=== PATIENT | female | born 1985 | race Caucasian/White ===

== ENCOUNTER 2019-12-03 07:51 | Inpatient (IN) | payer OTHER ==
[2019-12-03] MEDS ORDERED: Methylergonovine 0.2 MG/1 ML Amp IM PRN (08:10)
[2019-12-03] MEDS ORDERED: Sodium Chloride 0.9% 10 ML Syringe FLUSH PRN (08:10)
[2019-12-03] MEDS ORDERED: Tranexamic Acid 1,000 MG in Sodium Chloride 0.9% 100 ML IV PRN (08:10)
[2019-12-03] MEDS ORDERED: Sodium Chloride 0.9% 10 ML SDV IV PRN (08:10)
[2019-12-03] MEDS ORDERED: Water For Irrigation,Sterile 1,000 ML Container IRR PRN (08:10)
[2019-12-03] MEDS ORDERED: Carboprost Tromethamine 250 MCG/1 ML Amp IM PRN (08:10)
[2019-12-03] MEDS ORDERED: Nalbuphine 10 MG/1 ML Vial IVPUSH PRN (08:10)
[2019-12-03] MEDS ORDERED: Misoprostol 200 MCG Tab PO PRN (08:10)
[2019-12-03] MEDS ORDERED: Lidocaine 1% 50 ML MDV INJECT PRN (08:10)
[2019-12-03] MEDS ORDERED: Sodium Chloride 0.9% 2.5 ML Syringe FLUSH PRN (08:10)
[2019-12-03] MEDS ORDERED: Terbutaline 1 MG/ML SDV SUBCUT PRN (08:10)
[2019-12-03] MEDS ORDERED: Oxytocin/0.9 % Sodium Chloride 30 UNIT/500 ML BAG IV SCH ×2 (08:15)
[2019-12-03] MEDS: Lactated Ringers 1,000 ML IV SCH ×3 (08:38→23:17)
[2019-12-03] MEDS: Misoprostol 25 MCG (1/4 of 100 MCG) Tab VAG PRN ×3 (08:45→17:11)
[2019-12-03] MEDS: Butorphanol 1 MG/ML SDV IVPUSH PRN ×2 (17:36→21:13)
[2019-12-03] MEDS ORDERED: fentaNYL 100 MCG/2 ML SDV ONE (22:59)
[2019-12-03] MEDS ORDERED: Ropivacaine HCl/PF 100 ML ONE (22:59)
--- NOTE | 2019-12-03 23:23 | PCM.PREANE ---
Preanesthetic Assessment - Anesthesia/Transfusion/Family Hx Anesthesia History: Prior Anesthesia Without Reaction Family History of Anesthesia Reaction: No Transfusion History: No Prior Transfusion(s) - Physical Assessment NPO Status Date: 12/03/19 NPO Status Time: 20:00 Height: 1.68 m Weight: 92.533 kg ASA Class: 1 - Lab Values: Laboratory Last Values WBC 10.98 K/uL (4.0-11.0) 12/03/19 08:36 RBC 4.21 M/uL (4.30-5.90) L 12/03/19 08:36 Hgb 12.7 g/dL (12.0-16.0) 12/03/19 08:36 Hct 38.7 % (36.0-46.0) 12/03/19 08:36 MCV 91.9 fL (80.0-98.0) 12/03/19 08:36 MCH 30.2 pg (27.0-32.0) 12/03/19 08:36 MCHC 32.8 g/dL (31.0-37.0) 12/03/19 08:36 RDW Std Deviation 44.3 fl (28.0-62.0) 12/03/19 08:36 RDW Coeff of Joss 13 % (11.0-15.0) 12/03/19 08:36 Plt Count 329 K/uL (150-400) 12/03/19 08:36 MPV 9.60 fL (7.40-12.00) 12/03/19 08:36 Nucleated RBC % 0.0 /100WBC 12/03/19 08:36 Nucleated RBCs # 0 K/uL 12/03/19 08:36 Blood Type O POSITIVE 12/03/19 08:36 Antibody Screen NEGATIVE 12/03/19 08:36 - Allergies Allergies/Adverse Reactions: Allergies Allergy/AdvReac Type Severity Reaction Status Date / Time No Known Allergies Allergy Verified 12/03/19 08:09 - Acknowledgements Anesthesia Type Planned: Epidural Pt an Appropriate Candidate for the Planned Anesthesia: Yes Alternatives and Risks of Anesthesia Discussed w Pt/Guardian: Yes Pt/Guardian Understands and Agrees with Anesthesia Plan: Yes PreAnesthesia Questionnaire HEENT History: Reports: Other (See Below) 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 Breast augmentation. - SUBSTANCE USE Smoking Status *Q: Never Smoker Tobacco Use Within Last Twelve Months: No Second Hand Smoke Exposure: No Recreational Drug Use History: No - HOME MEDS Home Medications: Home Meds Pnv No.95/Ferrous Fum/Folic AC [ Caplet] 1 each PO DAILY 12/03/19 [ History] - CURRENT (IN HOUSE) MEDS Current Meds: Current Medications Butorphanol Tartrate (Stadol) 1 mg IVPUSH Q1H PRN PRN Reason: Pain Last Admin: 12/03/19 21:13 Dose: 1 mg Carboprost Tromethamine (Hemabate Ds) 250 mcg IM ASDIRECTED PRN PRN Reason: Post Hemorrhage Lactated Ringer's (Ringers, Lactated) 1,000 mls @ 150 mls/hr IV ASDIRECTED JUAN Last Admin: 12/03/19 23:17 Dose: 500 mls/hr Oxytocin/Sodium Chloride (Oxytocin 30 Unit/500 Ml-Ns) 30 unit in 500 mls @ 999 mls/hr IV TITRATE JUAN Oxytocin/Sodium Chloride (Oxytocin 30 Unit/500 Ml-Ns) 30 unit in 500 mls @ 2 mls/hr IV TITRATE JUAN; Protocol Tranexamic Acid 1,000 mg/ (Sodium Chloride) 110 mls @ 660 mls/hr IV ONETIME PRN PRN Reason: Bleeding Lidocaine HCl (Xylocaine 1%) 50 ml INJECT ONETIME PRN PRN Reason: Laceration repair Methylergonovine Maleate (Methergine) 0.2 mg IM ASDIRECTED PRN PRN Reason: Post Hemorrhage Misoprostol (Cytotec) 200 mcg PO ONETIME PRN PRN Reason: Post Hemorrhage Misoprostol (Cytotec) 25 mcg VAG Q4H PRN PRN Reason: Cervical Ripening Last Admin: 12/03/19 17:11 Dose: 25 mcg Nalbuphine HCl (Nubain) 10 mg IVPUSH Q1H PRN PRN Reason: Pain (severe 7-10) Sodium Chloride (Saline Flush) 10 ml FLUSH ASDIRECTED PRN PRN Reason: Keep Vein Open Sodium Chloride (Saline Flush) 2.5 ml FLUSH ASDIRECTED PRN PRN Reason: Keep Vein Open Last Admin: 12/03/19 21:19 Dose: 2.5 ml Sodium Chloride (Normal Saline) 10 ml IV ASDIRECTED PRN PRN Reason: IV Use Sterile Water (Sterile Water For Irrigation) 1,000 ml IRR ASDIRECTED PRN PRN Reason: delivery Terbutaline Sulfate (Brethine) 0.25 mg SUBCUT ASDIRECTED PRN PRN Reason: Tacysystole Discontinued Medications Fentanyl (Sublimaze) Confirm Administered Dose 100 mcg .ROUTE .STPatient Conversation Media-MED ONE Stop: 12/03/19 23:00 Ropivacaine (Naropin 0.2%) Confirm Administered Dose 100 mls @ as directed .ROUTE .STPatient Conversation Media-MED ONE Stop: 12/03/19 23:00
--- NOTE | 2019-12-03 23:27 | PCM.PRNOTE ---
- Free Text/Narrative Note: Anes NOte Patietn requests epidural for L&D. Sitting position, level L3-L4 midline appraoch. Sterile technique. Chloraprep scrub to lumbar area. Sterile fenestrated drape applied. Epidural space easily achieved single attempt with ease using KALIE technique. KALIE at 3 cm. Cath threaded 5 cm with ease. Cath secured at 9 cm at skin using sterile clear adhesive dressing. 2310 Test 3 cc 1.5% lido with epi negative. 2312 Load 10 cc 0.2% ropivicaine with 1 mcg cc fentanyl i slow divided doses. 2316 Pump started with 90 cc same solution/ Rate is 8 cc hr with 6 cc q 20 min prn bolus. Ruth well. Time with patient [id number] Ray Danielle CRNA
[2019-12-04] MEDS ORDERED: Acetaminophen 500 MG Tab PO ONE (08:10)
[2019-12-04] MEDS: Lactated Ringers 1,000 ML IV SCH ×2 (08:40→15:12)
[2019-12-04] MEDS ORDERED: Ropivacaine HCl/PF 100 ML ONE (08:51)
--- NOTE | 2019-12-04 08:59 | PCM.SN.2 ---
- Free Text/Narrative Note: Doing well. Epidural bag changed. Settings remain as previous..
[2019-12-04] MEDS ORDERED: Ampicillin 2 GM in Sodium Chloride 0.9% 100 ML IV SCH (15:00)
[2019-12-04] MEDS ORDERED: Citric Acid/Sodium Citrate Solution 30 ML Cup ONE (15:56)
[2019-12-04] MEDS ORDERED: Citric Acid/Sodium Citrate Solution 30 ML Cup PO ONE (16:03)
[2019-12-04] MEDS ORDERED: Clindamycin Phosphate in D5W 900 MG in Premix Bag 1 BAG IV ONE ×2 (16:10)
[2019-12-04] MEDS ORDERED: ePHEDrine 50 MG/ML SDV ONE (16:17)
[2019-12-04] MEDS ORDERED: Ondansetron 4 MG/2 ML SDV ONE (16:17)
[2019-12-04] MEDS ORDERED: Sodium Chloride 0.9% 20 ML ONE (16:19)
[2019-12-04] MEDS ORDERED: fentaNYL 100 MCG/2 ML SDV IVPUSH PRN (16:24)
[2019-12-04] MEDS ORDERED: Nalbuphine 10 MG/1 ML Vial IVPUSH PRN (16:24)
[2019-12-04] MEDS ORDERED: Acetaminophen/oxyCODONE 325-5 MG Tab PO PRN ×3 (16:24→17:59)
[2019-12-04] MEDS ORDERED: Morphine PF 10 MG/10 ML SDV ONE (16:31)
[2019-12-04] MEDS ORDERED: Ibuprofen 800 MG Tab PO PRN (17:59)
[2019-12-04] MEDS ORDERED: Bisacodyl 10 MG Supp RECTAL PRN (17:59)
[2019-12-04] MEDS ORDERED: Methylergonovine 0.2 MG/1 ML Amp IM PRN (17:59)
[2019-12-04] MEDS ORDERED: Oxytocin 10 Units/1 ML SDV IM PRN (17:59)
[2019-12-04] MEDS ORDERED: Tranexamic Acid 1,000 MG in Sodium Chloride 0.9% 100 ML IV PRN (17:59)
[2019-12-04] MEDS ORDERED: Ondansetron 4 MG/2 ML SDV IVPUSH PRN (17:59)
[2019-12-04] MEDS ORDERED: Misoprostol 200 MCG Tab RECTAL PRN (17:59)
[2019-12-04] MEDS ORDERED: diphenhydrAMINE 50 MG/ML SDV IVPUSH PRN (17:59)
[2019-12-04] MEDS ORDERED: Lanolin 100% Cream 7 GM Tube TOP PRN (17:59)
[2019-12-04] MEDS ORDERED: Oxytocin/Lactated Ringers 30 UNIT/500 ML BAG IV SCH (18:00)
[2019-12-04] MEDS ORDERED: Ampicillin/Sulbactam Na 3 GM in Sodium Chloride 0.9% 100 ML IV SCH (18:15)
--- NOTE | 2019-12-04 18:21 | PCM.OPNOTE ---
- General Post-Op/Procedure Note Date of Surgery/Procedure: 12/04/19 Operative Procedure(s): Primary lower segment Findings: Live male delivered in OP position at 1649 , 8/9 , Weight- 3190g Normal tubes and ovaries Fibroid Uterus Pre Op Diagnosis: 34yo @ 40w3d for Arrest of Dilatation. Chorioamnionitis Post-Op Diagnosis: same Anesthesia Technique: Epidural Primary Surgeon: Juve Hu Anesthesia Provider: Kamran Alarcon Event Decorator: Kerry Paniagua Pathology: Placenta Fluid Replacement, Intraop: 1,100 Output, Urine Amount: 250 EBL in mLs: 800 Complications: None Condition: Good
--- NOTE | 2019-12-04 18:30 | PCM.POSTAN ---
POST ANESTHESIA ASSESSMENT - MENTAL STATUS Mental Status: Alert, Oriented - RESPIRATORY Respiratory Status: Respiratory Rate WNL, Airway Patent, O2 Saturation Stable - CARDIOVASCULAR CV Status: Pulse Rate WNL, Blood Pressure Stable - GASTROINTESTINAL GI Status: No Symptoms - POST OP HYDRATION Hydration Status: Adequate & Stable
[2019-12-04] MEDS ORDERED: Ketorolac 30 MG/ML SDV IVPUSH SCH (19:00)
[2019-12-04] MEDS: Ampicillin/Sulbactam Na 3 GM in Sodium Chloride 0.9% 100 ML IV SCH (19:59)
[2019-12-04] MEDS: Docusate Sodium 100 MG Cap PO SCH (20:04)
[2019-12-05] MEDS: Ketorolac 30 MG/ML SDV IVPUSH SCH ×3 (01:07→13:41)
[2019-12-05] MEDS: Ampicillin/Sulbactam Na 3 GM in Sodium Chloride 0.9% 100 ML IV SCH ×4 (02:02→14:55)
[2019-12-05] MEDS: Lactated Ringers 1,000 ML IV SCH (08:23)
--- NOTE | 2019-12-05 09:00 | OR ---
SURGEON: NATALIA RYAN DATE OF PROCEDURE: 12/04/2019 PREOPERATIVE DIAGNOSES: A 34-year-old G1, P0, at 40 weeks 3 days, admitted for induction of labor, had arrest of descent, chorioamnionitis. POSTOPERATIVE DIAGNOSES: 1. Arrest of descent. 2. Chorioamnionitis. PROCEDURE: Primary lower transverse section. Anaesthesia: Epidural ESTIMATED BLOOD LOSS: 800. IV FLUIDS: 1100. URINE OUTPUT: 250. NOTES AND FINDING: Live male delivered at 1649. scores 8 and 9, weight 3190 g. Multiple subserosal fibroid BRIEF HISTORY: The patient is a 34-year-old G1, P0, at 40 weeks 3 days who was admitted for induction of labor. She received Cytotec x3 doses and had a CRB balloon placed. After CRB balloon was placed, she received Pitocin, was titrated up. IUPC was placed. She had occasional variable deceleration that recovered to baseline category 1 tracing. When patient was fully dilated, she was encouraged to push. She tried to push. Then baby was noted to be in OP position, however, attempt was made to rotate the baby which was unsuccessful. With pushing more worsening caput was noted. As a result, the patient was consented for a , which she agreed to. She was explained the risks, benefits, and alternatives and she decided to proceed. DESCRIPTION OF PROCEDURE: The patient was taken to the operating room where epidural anesthesia was topped up. She was prepared and draped in the dorsal supine position with a leftward tilt. The Pfannenstiel skin incision was made on the skin and carried down to the fascia with the Bovie. The fascia was incised and extended laterally. The fascia was in the midline down to the level of the pubic symphysis. Then the rectus muscle was also in the midline and entry was into the peritoneum without any difficulty. Then, an Mata retractor was placed in to expose the lower uterine segment. Bladder flap was created. Lower uterine incision was also made. The head was then elevated up to the level of the incision, with fundal pressure baby was delivered without any difficulty. The cord was clamped and cut. With manual fundal pressure placenta was delivered without any difficulty. The uterine cavity was cleaned and the hysterotomy incision was closed in 2 layers, 1st layer with 0 Vicryl, the 2nd layer with 0 Monocryl. The adnexa were inspected and noted to be normal. The uterus had multiple subserosal fibroids. Incision was inspected, noted to be hemostatic. The Mata retractor was removed. The peritoneum was closed with 2-0 Vicryl. The muscle was apposed in the midline with 2-0 Vicryl, and the fascia was closed with 0 Vicryl without any difficulty. Subcutaneous fat was closed with 3-0 plain gut. The skin was closed with 3-0 Monocryl on a Adrian needle. All instrument and pad counts were correct x2. The patient was taken to the Labor and Delivery room in stable condition. GHASSAN / ANDRE /[id number] MTDD
--- NOTE | 2019-12-05 09:43 | PCM48HPAN ---
Post Anesthesia Note - EVALUATION WITHIN 48HRS OF ANESTHETIC Vital Signs in Normal Range: Yes Patient Participated in Evaluation: Yes Respiratory Function Stable: Yes Airway Patent: Yes Cardiovascular Function Stable: Yes Hydration Status Stable: Yes Pain Control Satisfactory: Yes Nausea and Vomiting Control Satisfactory: Yes Mental Status Recovered: Yes Vital Signs: Last Vital Signs Temp 36.5 C 12/05/19 08:00 Pulse 90 12/05/19 09:00 Resp 16 12/05/19 09:00 BP 103/58 L 12/05/19 08:00 Pulse Ox 98 12/05/19 09:00
[2019-12-05] MEDS: Docusate Sodium 100 MG Cap PO SCH (10:46)
--- NOTE | 2019-12-05 12:37 | PCM.PNPP ---
- General Info Date of Service: 12/05/19 Subjective Update: 34yo P1 s/p primary POD1, ambulating tolerating regular diet Functional Status: Reports: Pain Controlled, Tolerating Diet, Ambulating - Review of Systems General: Reports: No Symptoms HEENT: Reports: No Symptoms Pulmonary: Reports: No Symptoms Cardiovascular: Reports: No Symptoms Gastrointestinal: Reports: No Symptoms Genitourinary: Reports: No Symptoms Musculoskeletal: Reports: No Symptoms Skin: Reports: No Symptoms Neurological: Reports: No Symptoms Psychiatric: Reports: No Symptoms - General Info Date of Service: 12/05/19 - Patient Data Vital Signs - Most Recent: Last Vital Signs Temp 36.5 C 12/05/19 08:00 Pulse 90 12/05/19 10:00 Resp 16 12/05/19 10:00 BP 103/58 L 12/05/19 08:00 Pulse Ox 98 12/05/19 10:00 Weight - Most Recent: 92.533 kg I&O - Last 24 Hours: Intake & Output 12/04/19 12/05/19 12/05/19 22:59 06:59 14:59 Intake Total 1100 Output Total 1050 2350 2100 Balance 50 -2350 -2100 Lab Results - Last 24 Hours: Laboratory Results - last 24 hr 12/04/19 12/05/19 Range/Units 16:49 05:45 WBC 17.04 H (4.0-11.0) K/uL RBC 3.40 L (4.30-5.90) M/uL Hgb 10.3 L (12.0-16.0) g/dL Hct 31.6 L (36.0-46.0) % MCV 92.9 (80.0-98.0) fL MCH 30.3 (27.0-32.0) pg MCHC 32.6 (31.0-37.0) g/dL RDW Std Deviation 45.8 (28.0-62.0) fl RDW Coeff of Joss 14 (11.0-15.0) % Plt Count 277 (150-400) K/uL MPV 9.30 (7.40-12.00) fL Neut % (Auto) 76.8 (48.0-80.0) % Lymph % (Auto) 12.8 L (16.0-40.0) % [place] % (Auto) 9.3 (0.0-15.0) % Eos % (Auto) 1.0 (0.0-7.0) % Baso % (Auto) 0.1 (0.0-1.5) % Neut # (Auto) 13.1 H (1.4-5.7) K/uL Lymph # (Auto) 2.2 (0.6-2.4) K/uL [place] # (Auto) 1.6 H (0.0-0.8) K/uL Eos # (Auto) 0.2 (0.0-0.7) K/uL Baso # (Auto) 0.0 (0.0-0.1) K/uL Nucleated RBC % 0.0 /100WBC Nucleated RBCs # 0 K/uL Cord VBG pH 7.367 (7.25-7.45) Cord VBG Base Excess -5 (-10--2) Med Orders - Current: Current Medications Bisacodyl (Dulcolax) 10 mg RECTAL ONETIME PRN PRN Reason: Constipation Butorphanol Tartrate (Stadol) 1 mg IVPUSH Q1H PRN PRN Reason: Pain Last Admin: 12/03/19 21:13 Dose: 1 mg Carboprost Tromethamine (Hemabate Ds) 250 mcg IM ASDIRECTED PRN PRN Reason: Post Hemorrhage Diphenhydramine HCl (Benadryl) 25 mg IVPUSH Q6H PRN PRN Reason: Itching or Nausea Last Admin: 12/05/19 01:08 Dose: 25 mg Docusate Sodium (Colace) 100 mg PO BID [facility] Last Admin: 12/05/19 10:46 Dose: 100 mg Emollient Ointment (Lansinoh Hpa) 0 gm TOP ASDIRECTED PRN PRN Reason: Sore Nipples Fentanyl (Sublimaze) 50 mcg IVPUSH Q5M PRN PRN Reason: Pain (severe 7-10) Stop: 12/05/19 16:25 Lactated Ringer's (Ringers, Lactated) 1,000 mls @ 150 mls/hr IV ASDIRECTED [facility] Last Admin: 12/04/19 15:12 Dose: 150 mls/hr Oxytocin/Sodium Chloride (Oxytocin 30 Unit/500 Ml-Ns) 30 unit in 500 mls @ 999 mls/hr IV TITRATE JUAN Oxytocin/Sodium Chloride (Oxytocin 30 Unit/500 Ml-Ns) 30 unit in 500 mls @ 2 mls/hr IV TITRATE [facility]; Protocol Last Titration: 12/04/19 15:48 Dose: 0 munits/min, 0 mls/hr Tranexamic Acid 1,000 mg/ (Sodium Chloride) 110 mls @ 660 mls/hr IV ONETIME PRN PRN Reason: Bleeding Tranexamic Acid 1,000 mg/ (Sodium Chloride) 110 mls @ 660 mls/hr IV ONETIME PRN PRN Reason: Bleeding Lactated Ringer's (Ringers, Lactated) 1,000 mls @ 125 mls/hr IV ASDIRECTED [facility] Last Admin: 12/05/19 08:23 Dose: 125 mls/hr Oxytocin/Lactated Ringer's (Pitocin In Lr 30 Units/500 Ml) 30 unit in 500 mls @ 125 mls/hr IV TITRATE [facility]; Protocol Ampicillin Sodium/Sulbactam (Sodium 3 gm/ Sodium Chloride) 100 mls @ 200 mls/ hr IV Q6H [facility] Last Admin: 12/05/19 08:23 Dose: 200 mls/hr Ibuprofen (Motrin) 800 mg PO Q8H PRN PRN Reason: mild pain or fever Ketorolac Tromethamine (Toradol) 30 mg IVPUSH Q6H [facility] Stop: 12/05/19 19:01 Last Admin: 12/05/19 06:35 Dose: 30 mg Lidocaine HCl (Xylocaine 1%) 50 ml INJECT ONETIME PRN PRN Reason: Laceration repair Methylergonovine Maleate (Methergine) 0.2 mg IM ASDIRECTED PRN PRN Reason: Post Hemorrhage Methylergonovine Maleate (Methergine) 0.2 mg IM ONETIME PRN PRN Reason: Excessive Vaginal Bleeding Misoprostol (Cytotec) 200 mcg PO ONETIME PRN PRN Reason: Post Hemorrhage Misoprostol (Cytotec) 25 mcg VAG Q4H PRN PRN Reason: Cervical Ripening Last Admin: 12/03/19 17:11 Dose: 25 mcg Misoprostol (Cytotec) 1,000 mcg RECTAL ONETIME PRN PRN Reason: excessive bleeding Nalbuphine HCl (Nubain) 10 mg IVPUSH Q1H PRN PRN Reason: Pain (severe 7-10) Last Admin: 12/05/19 06:36 Dose: 10 mg Nalbuphine HCl (Nubain) 2.5 mg IVPUSH Q3H PRN PRN Reason: Pruritis Stop: 12/05/19 16:25 Last Admin: 12/05/19 12:19 Dose: 2.5 mg Ondansetron HCl (Zofran) 4 mg IVPUSH Q4H PRN PRN Reason: Nausea/Vomiting Oxycodone/Acetaminophen (Percocet 325-5 Mg) 1 tab PO ONETIME PRN PRN Reason: Pain (moderate 4-6) Oxycodone/Acetaminophen (Percocet 325-5 Mg) 1 tab PO Q4H PRN PRN Reason: Pain (moderate 4-6) Oxycodone/Acetaminophen (Percocet 325-5 Mg) 2 tab PO Q4H PRN PRN Reason: Pain (moderate 4-6) Oxytocin (Pitocin) 10 unit IM ASDIRECTED PRN PRN Reason: Excessive Vaginal Bleeding Sodium Chloride (Saline Flush) 10 ml FLUSH ASDIRECTED PRN PRN Reason: Keep Vein Open Sodium Chloride (Saline Flush) 2.5 ml FLUSH ASDIRECTED PRN PRN Reason: Keep Vein Open Last Admin: 12/03/19 21:19 Dose: 2.5 ml Sodium Chloride (Normal Saline) 10 ml IV ASDIRECTED PRN PRN Reason: IV Use Sterile Water (Sterile Water For Irrigation) 1,000 ml IRR ASDIRECTED PRN PRN Reason: delivery Terbutaline Sulfate (Brethine) 0.25 mg SUBCUT ASDIRECTED PRN PRN Reason: Tacysystole Discontinued Medications Acetaminophen (Tylenol Extra Strength) 1,000 mg PO ONETIME ONE Stop: 12/04/19 08:11 Last Admin: 12/04/19 08:18 Dose: 1,000 mg Citric Acid/Sodium Citrate (Bicitra Solution) Confirm Administered Dose 30 ml .ROUTE .STK-MED ONE Stop: 12/04/19 15:57 Citric Acid/Sodium Citrate (Bicitra Solution) 30 ml PO ONETIME ONE Stop: 12/04/19 16:04 Last Admin: 12/04/19 16:05 Dose: 30 ml Ephedrine Sulfate (Ephedrine Sulfate) Confirm Administered Dose 50 mg .ROUTE .STK-MED ONE Stop: 12/04/19 16:18 Fentanyl (Sublimaze) Confirm Administered Dose 100 mcg .ROUTE .STK-MED ONE Stop: 12/03/19 23:00 Ropivacaine (Naropin 0.2%) Confirm Administered Dose 100 mls @ as directed .ROUTE .STK-MED ONE Stop: 12/03/19 23:00 Ropivacaine (Naropin 0.2%) Confirm Administered Dose 100 mls @ as directed .ROUTE .STK-MED ONE Stop: 12/04/19 08:52 Ampicillin Sodium 2 gm/ Sodium (Chloride) 100 mls @ 200 mls/hr IV Q6H [facility] Last Admin: 12/04/19 15:14 Dose: 200 mls/hr Gentamicin Sulfate 100 mg/ (Sodium Chloride) 102.5 mls @ 195.238 mls/hr IV Q8H [facility] Last Admin: 12/04/19 15:58 Dose: 195.238 mls/hr Clindamycin Phosphate 900 mg/ (Premix) 50 mls @ 100 mls/hr IV ONETIME ONE Stop: 12/04/19 16:39 Acetaminophen (Ofirmev) Confirm Administered Dose 100 mls @ as directed .ROUTE .STK-MED ONE Stop: 12/04/19 16:10 Sodium Chloride (Normal Saline) Confirm Administered Dose 20 mls @ as directed .ROUTE .STK-MED ONE Stop: 12/04/19 16:20 Ampicillin Sodium/Sulbactam (Sodium 3 gm/ Sodium Chloride) 100 mls @ 200 mls/ hr IV Q6H [facility] Ibuprofen (Motrin) 800 mg PO Q8H PRN PRN Reason: mild pain or fever Ketorolac Tromethamine (Toradol) 30 mg IVPUSH Q6H [facility] Stop: 12/05/19 19:01 Last Admin: 12/04/19 18:53 Dose: 30 mg Morphine Sulfate (Duramorph Pf) Confirm Administered Dose 10 mg .ROUTE .STK-MED ONE Stop: 12/04/19 16:32 Ondansetron HCl (Zofran) Confirm Administered Dose 4 mg .ROUTE .STK-MED ONE Stop: 12/04/19 16:18 - Infant Interaction Support Person: - Recovery Exam Fundal Tone: Firm Fundal Level: At Umbilicus Fundal Placement: Midline Lochia Amount: Scant Lochia Color: Rubra/Red Perineum Description: Intact, Minimal Bruising/Swelling Episiotomy/Laceration: None Bladder Status: Indwelling Catheter in Place Urinary Elimination: Indwelling Catheter - Exam General: Alert HEENT: Pupils Equal Neck: Supple Lungs: Clear to Auscultation Cardiovascular: Regular Rate, Regular Rhythm GI/Abdominal Exam: Normal Bowel Sounds Wound/Incisions: Dressing Dry and Intact, Other (pfannestiel skin incision c/d/ i ) Neurological: No New Focal Deficit Psy/Mental Status: Alert - Problem List & Annotations (1) delivery delivered SNOMED Code(s): 378066782 Code(s): O82 - ENCOUNTER FOR DELIVERY WITHOUT INDICATION Status: Acute Current Visit: Yes - Problem List Review Problem List Initiated/Reviewed/Updated: Yes - My Orders Last 24 Hours: My Active Orders 12/04/19 17:59 Notify Provider Intake and Out [RC] ASDIRECTED Acetaminophen/oxyCODONE [Percocet 325-5 MG] 1 tab PO Q4H PRN Acetaminophen/oxyCODONE [Percocet 325-5 MG] 2 tab PO Q4H PRN Lanolin [Lansinoh HPA] See Dose Instructions TOP ASDIRECTED PRN Methylergonovine [Methergine] 0.2 mg IM ONETIME PRN Ondansetron [Zofran] 4 mg IVPUSH Q4H PRN Oxytocin [Pitocin] 10 unit IM ASDIRECTED PRN Tranexamic Acid [Cyklokapron] 1,000 mg Sodium Chloride 0.9% [Normal Saline] 100 ml IV ONETIME bisacodyL [Dulcolax] 10 mg RECTAL ONETIME PRN diphenhydrAMINE [Benadryl] 25 mg IVPUSH Q6H PRN miSOPROStoL [Cytotec] 1,000 mcg RECTAL ONETIME PRN 12/04/19 18:00 Patient Status [ADT] Routine Ambulate [RC] PER UNIT ROUTINE Communication Order [RC] PER UNIT ROUTINE May Shower [RC] ASDIRECTED Notify Provider Vital Signs [RC] ASDIRECTED RT Incentive Spirometry [RC] Q2HWA Lactated Ringers [Ringers, Lactated] 1,000 ml IV ASDIRECTED Oxytocin/Lactated Ringers [Pitocin in LR 30 Units/500 ML] 30 unit in 500 ml IV TITRATE Assess Lochia [WOMSER] Per Unit Routine Assess Uterine Involution [WOMSER] Per Unit Routine Breast Pump [WOMSER] Per Unit Routine Peripheral IV Discontinue [OM.PC] Routine Sequential Compression Device [OM.PC] Per Unit Routine 12/04/19 20:00 Ampicillin/Sulbactam Na [Unasyn] 3 gm Sodium Chloride 0.9% [Normal Saline] 100 ml IV Q6H 12/04/19 21:00 Docusate Sodium [Colace] 100 mg PO BID 12/05/19 01:00 Ketorolac [Toradol] 30 mg IVPUSH Q6H 12/06/19 01:00 Ibuprofen [Motrin] 800 mg PO Q8H PRN - Assessment Assessment:: 34yo P1 s/p POD1 , ambulating , machado in place transferred to [place] for Cephal hematoma - Plan Plan:: Doing well Pain control as needed Will discharge home today Follow void and will discharge after voiding
[2019-12-06] MEDS ORDERED: Ibuprofen 800 MG Tab PO PRN (01:00)
== END 2019-12-05 16:04 | disposition home or self-care (01) | DRG 786 ==
LOC: MW.OB 07:51 → OBSVTOIN 18:00 → MW.OB 18:00
PROVIDERS: ADMIT Obstetrics & Gynecology; ATTEND Obstetrics & Gynecology
PROC: 10D00Z1 Extraction of Products of Conception, Low, Open Approach (ICD-10-PCS; principal; 2019-12-03)
PROC: 10H07YZ Insertion of Other Device into Products of Conception, Via Natural or Artificial Opening (ICD-10-PCS; 2019-12-03)
PROC: 3E033VJ Introduction of Other Hormone into Peripheral Vein, Percutaneous Approach (ICD-10-PCS; 2019-12-03)
PROC: 3E0R3BZ Introduction of Anesthetic Agent into Spinal Canal, Percutaneous Approach (ICD-10-PCS; 2019-12-03)
PROC: 00HU33Z Insertion of Infusion Device into Spinal Canal, Percutaneous Approach (ICD-10-PCS; 2019-12-03)
DX: O48.0 Post-term pregnancy (principal); O41.1230 Chorioamnionitis, third trimester, not applicable or unspecified; O76 Abnormality in fetal heart rate and rhythm complicating labor and delivery; O62.1 Secondary uterine inertia; Z37.0 Single live birth; Z3A.40 40 weeks gestation of pregnancy
CPT/HCPCS: 01967; 36415; 51702; 59025; 59200; 82803; 85025; 85027; 86592; 86593; 86850; 86900; 86901; A9270-GY; J0290; J0295; J0595; J1200; J1580; J1885; J2270; J2300; J2405; J2590; J2795; J3010; J7050; J7120